=== PATIENT | female | born 2000 | race African-American/Black ===

== ENCOUNTER 2018-12-17 22:04 | Emergency (ER) | payer OTHER ==
[~2018-12-17] VITALS: Ht 167.6 cm; Wt 93.0 kg
[2018-12-17 22:13] VITALS: Ht 167.6 cm; Wt 93.0 kg
[2018-12-17 23:24] VITALS: BP 113/77
== END 2018-12-17 23:24 | disposition home or self-care (01) ==
LOC: ED 22:04
DX: K29.70 Gastritis, unspecified, without bleeding (principal); T36.95XA Adverse effect of unspecified systemic antibiotic, initial encounter; Z91.018 Allergy to other foods; Z88.5 Allergy status to narcotic agent; Z91.010 Allergy to peanuts; Y92.89 Other specified places as the place of occurrence of the external cause

== ENCOUNTER 2019-01-09 23:29 | Emergency (ER) | payer OTHER, MEDICAID ==
[~2019-01-09] VITALS: Ht 167.6 cm; Wt 93.4 kg
[2019-01-09 23:37] VITALS: Ht 167.6 cm; Wt 93.4 kg
[2019-01-10 01:10] VITALS: BP 114/73
== END 2019-01-10 01:10 | disposition home or self-care (01) ==
LOC: ED 23:29
DX: J03.90 Acute tonsillitis, unspecified (principal); R11.0 Nausea; Z76.0 Encounter for issue of repeat prescription; Z91.010 Allergy to peanuts; Z91.013 Allergy to seafood; Z91.018 Allergy to other foods; Z88.5 Allergy status to narcotic agent